=== PATIENT | male | born 1990 | race African-American/Black ===

== ENCOUNTER 2018-06-26 05:27 | Emergency (ER) | payer MEDICAID ==
[~2018-06-26] VITALS: Ht 172.7 cm; Wt 65.8 kg
[2018-06-26 05:32] VITALS: BP 156/96
== END 2018-06-26 10:18 | disposition home or self-care (01) ==
LOC: ER 05:27
DX: L25.9 Unspecified contact dermatitis, unspecified cause (principal)

== ENCOUNTER 2019-09-14 11:32 | Emergency (ER) | payer MEDICAID ==
[~2019-09-14] VITALS: Ht 172.7 cm; Wt 61.2 kg
[2019-09-14 12:01] VITALS: BP 153/97
[2019-09-14] MEDS ORDERED: ACETAMINOPHEN/CODEINE#3 (300/30mg) TAB PO ONE (12:45)
== END 2019-09-14 13:18 | disposition home or self-care (01) ==
LOC: ER 11:32
DX: S16.1XXA Strain of muscle, fascia and tendon at neck level, initial encounter (principal); M79.672 Pain in left foot; R51 Headache; F17.210 Nicotine dependence, cigarettes, uncomplicated; V43.52XA Car driver injured in collision with other type car in traffic accident, initial encounter; Y93.89 Activity, other specified; Y92.488 Other paved roadways as the place of occurrence of the external cause; Y99.8 Other external cause status
CPT/HCPCS: 70450; 72040; 73630

== ENCOUNTER 2023-02-27 08:38 | Emergency (ER) | payer MEDICAID ==
[~2023-02-27] VITALS: Ht 172.7 cm; Wt 61.3 kg
[2023-02-27 09:15] VITALS: BP 157/90; PULSE 96; RESP 20; TEMP 98.2; O2SAT 96
[2023-02-27] MEDS ORDERED: CEPH250C PO (10:10)
[2023-02-27] MEDS ORDERED: PER60TP TOP (10:10)
== END 2023-02-27 10:19 | disposition home or self-care (01) ==
LOC: ER 08:38
DX: B86 Scabies (principal); L08.9 Local infection of the skin and subcutaneous tissue, unspecified; F17.210 Nicotine dependence, cigarettes, uncomplicated

== ENCOUNTER 2023-03-26 07:47 | Emergency (ER) | payer MEDICAID ==
[~2023-03-26] VITALS: Ht 172.7 cm; Wt 63.8 kg
[~2023-03-26 07:47] MED LIST: CEPH250C PO; PER60TP TOP
[2023-03-26] MEDS ORDERED: IVER3TAB PO (10:04)
[2023-03-26 10:11] VITALS: BP 169/92; PULSE 72; RESP 18; TEMP 97.9; O2SAT 100
== END 2023-03-26 10:11 | disposition home or self-care (01) ==
LOC: ER 07:47
DX: B86 Scabies (principal); F17.210 Nicotine dependence, cigarettes, uncomplicated; F15.90 Other stimulant use, unspecified, uncomplicated; Z79.899 Other long term (current) drug therapy

== ENCOUNTER 2023-04-25 06:04 | Emergency (ER) | payer MEDICAID ==
[~2023-04-25] VITALS: Ht 175.3 cm; Wt 65.0 kg
[~2023-04-25 06:04] MED LIST changes: +IVER3TAB PO
[2023-04-25 07:31] VITALS: BP 147/92; TEMP 97.6; O2SAT 99
[2023-04-25 07:51] VITALS: PULSE 72; RESP 16; O2SAT 99
[2023-04-25] MEDS ORDERED: PER60TP TOP (07:51)
[2023-04-25] MEDS ORDERED: HYDR-4924 PO (07:51)
== END 2023-04-25 08:08 | disposition home or self-care (01) ==
LOC: ER 06:04
DX: B86 Scabies (principal); L08.9 Local infection of the skin and subcutaneous tissue, unspecified; F17.210 Nicotine dependence, cigarettes, uncomplicated; Z79.899 Other long term (current) drug therapy

== ENCOUNTER 2025-05-10 23:00 | Emergency (ER) | payer SELFPAY ==
[~2025-05-10] VITALS: Ht 175.3 cm; Wt 62.5 kg
[~2025-05-10 23:00] MED LIST changes: +HYDR-4924 PO
[2025-05-11] MEDS ORDERED: IBUP-1455 PO (00:51)
[2025-05-11] MEDS ORDERED: AUG875T PO (00:51)
[2025-05-11 00:52] VITALS: BP 147/97; PULSE 54; RESP 16; TEMP 99; O2SAT 99
--- NOTE | 2025-05-11 00:52 | ED.PDOC ---
History of Present Illness HPI Comments 34-year-old male complaining of right-sided jaw pain. States it started three days ago. Noticed some swelling in his jaw. Tenderness with the eating. Nothing makes it better, nothing makes it worse. Denies any trauma. No fever no chills. Chief Complaint: Jaw Pain Time Seen by MD: 00:32 Primary Care Provider: REYNAIES Reviewed Notes: Nurses Notes, Medications, Allergies Allergies: Coded Allergies: NO KNOWN ALLERGIES (Unverified , 05/09/14) Home Meds Active Scripts Hydroxyzine HCl (Hydroxyzine Hydrochloride) 25 Mg Tab, 25 MG PO Q6HPRN PRN, #30 TAB Prov[facility] Permethrin (Elimite) 5 % Cre, 1 APPLIC TOP ONCE, #60 GRAMS 1 Refill Repeat one more in 7 days Prov:ADALI HENNING [facility] 04/25/23 Ivermectin (Ivermectin) 3 Mg Tab, 12 MG PO ONCE for 1 Day, #8 TAB 0 Refills Take 12 mg at once. Repeat dose in 7 days. Prov:BOBBY HARMAN [employer]CH[employer] 03/26/23 Cephalexin (KEFLEX CAPSULE) 250 Mg Cp, 1 CAP PO QID for 7 Days, #28 CAP Prov:JONAS PERRY PAC 02/27/23 Permethrin (Elimite) 5 % Cre, 1 APPLIC TOP ONCE, #60 GRAMS 1 Refill Second dose to be repeated 10 days after first dose. Prov:JONAS PERRY 02/27/23 Mode of Arrival: Ambulatory Past Medical History PAST MEDICAL HISTORY: Denies Surgical History: Denies all surgeries Family History Family History: Unknown Social History Smoker: Cigarettes, Less Than 1 Pack/Day Alcohol: Occasionally Drugs: Marijuana Lives In: Home Constitutional: denies: chills, diaphoresis, fatigue, fever, malaise, sweats, weakness, others EENTM: reports: mouth pain, mouth swelling; denies: blurred vision, double vision, ear bleeding, ear discharge, ear drainage, ear pain, ear ringing, eye pain, eye redness, hearing loss, nasal discharge, nose bleeding, nose congestion, nose pain, photophobia, tearing, throat pain, throat swelling, voice changes, others Respiratory: denies: cough, hemoptysis, orthopnea, SOB at rest, shortness of breath, SOB with excertion, stridor, wheezing, others Cardiovascular: denies: chest pain, dizzy spells, diaphoresis, Dyspnea on exertion, edema, irregular heart beat, left arm pain, lightheadedness, palpitations, PND, syncope, others Gastrointestinal: denies: abdomen distended, abdominal pain, blood streaked bowels, constipated, diarrhea, dysphagia, difficulty swallowing, hematemesis, melena, nausea, poor appetite, poor fluid intake, rectal bleeding, rectal pain, vomiting, others Genitourinary: denies: burning, dysuria, flank pain, frequency, hematuria, incontinence, penile discharge, penile sore, pain, testicle pain, testicle swelling, urgency, others Neurological: denies: dizziness, fainting, headache, left sided numbness, left sided weakness, numbness, paresthesia, pre-existing deficit, right sided numbness, right sided weakness, seizure, speech problems, tingling, tremors, weakness, others Musculoskeletal: denies: back pain, gout, joint pain, joint swelling, muscle pain, muscle stiffness, neck pain, others Integumetry: denies: bruises, change in color, change in hair/nails, dryness, laceration, lesions, lumps, rash, wounds, others Allergic/Immunocompromised: denies: Difficulty Healing, Frequent Infections, Hives, Itching, others Hematologic/Lymphatic: denies: anemia, blood clots, easy bleeding, easy bruising, swollen glands, others Endocrine: denies: excessive hunger, excessive sweating, excessive thirst, excessive urination, flushing, intolerance to cold, intolerance to heat, unexplained weight gain, unexplained weight loss, others Psychiatric: denies: anxiety, bipolar disorder, depression, hopeless, panic disorder, schizophrenia, sleepless, suicidal, others All Other Systems: Reviewed and Negative Physical Exam General Appearance: No Apparent Distress, Normal HEENT: Normal ENT Inspection, Pharynx Normal, TMs Normal, Other (Swelling to the right-sided jaw. Dental fractures noted at tooth number 29) Neck: Full Range of Motion, Non-Tender, Normal, Normal Inspection Respiratory: Chest Non-Tender, Lungs Clear, No Accessory Muscle Use, No Respiratory Distress, Normal Breath Sounds Cardiovascular: No Edema, No JVD, No Murmur, No Gallop, Normal Peripheral Pulses, Regular Rate/Rhythm Breast Exam: Deferred Gastrointestinal: No Organomegaly, Non Tender, No Pulsatile Mass, Normal Bowel Sounds, Soft Genitalia: Deferred Pelvic: Deferred Rectal: Deferred Extremities: No calf tenderness, Normal capillary refill, Normal inspection, Normal range of motion, Non-tender, No pedal edema Musculoskeletal : Apperance: Normal Neurologic: Alert, holter technician II-XII nml as Tested, No Motor Deficits, Normal Affect, Normal Mood, No Sensory Deficits Cerebellar Function: Normal Reflexes: Normal Skin: Dry, Normal Color, Warm Lymphatic: No Adenopathy Was a procedure done? Was a procedure done?: No Differential Dx Considerations may include: Dental abscess, dental caries X-Ray, Labs, Meds, VS Vital Signs Date Time Temp Pulse Resp B/P (MAP) Pulse Ox O2 Delivery O2 Flow Rate FiO2 05/10/25 23:00 98.1 64 16 149/108 98 98.1 X-Ray, Labs, Meds, VS Comment Imaging: X-rays and CT scans were reviewed and interpreted by this provider, imaging shows no fractures and no pathological disease. Pending radiology review. Laboratory: Labs reviewed and interpreted by this provider. No significant abnormalities noted. Patient has prior medical visits reviewed. Med reconciliation performed Vital signs reviewed Time of 1ST Reevaluation: 00:47 Reevaluation 1ST: Unchanged Patient Education/Counseling: Diagnosis, Treatment, Prognosis, Need For Follow Up (Follow up with the dentist next available appointment) Family Education/Counseling: No Family Present SEPSIS Sepsis Screen Date sepsis recognized/suspect: May 10, 2025 Time Sepsis recognized/suspect: 2299 Recent Procedure: No On Antibiotic Therapy: No Respiratory Rate >20: No Heart Rate >90: No Temp<36 C (96.8 F) or >38.3 C: No SBP <90 or MAP <65 mmHG: No New Acute Mental Status Change: No Is the patient on CPAP, BIPAP,: No Vital Signs Date Time Temp Pulse Resp B/P (MAP) Pulse Ox O2 Delivery O2 Flow Rate FiO2 05/10/25 23:00 98.1 64 16 149/108 98 98.1 Departure 1 Departure Time of Disposition: 00:50 Impression: Primary Impression: Dental infection Disposition: HOME / SELF CARE / HOMELESS Condition: Stable e-Prescriptions Ibuprofen Micronized (Ibuprofen) 800 Mg Tab 800 MG PO TID PRN, #40 TAB Prov: CARO PETERSON 05/11/25 Amoxicillin & Pot Clavulanate (AUGMENTIN TABLET) 875 Mg Tb 875 MG PO BID for 7 Days, #14 TAB Prov: CARO PETERSON 05/11/25 Discharged With: Self Critical Care Note Critical Care Time?: No Stability Stability form required: No Heart Score Heart Score: Heart Score Response (Comments) Value History N/A 0 EKG N/A 0 Age N/A 0 Risk Factors N/A 0 Troponin N/A 0 Total 0 CARO PETERSON May 11, 2025 00:52
== END 2025-05-11 01:00 | disposition home or self-care (01) ==
LOC: ER 23:00
DX: K04.7 Periapical abscess without sinus (principal); F17.210 Nicotine dependence, cigarettes, uncomplicated